=== PATIENT | female | born 1990 | race Asian ===

== ENCOUNTER 2018-08-29 00:35 | Inpatient (IN) | payer SELFPAY ==
[~2018-08-29] VITALS: Ht 162.6 cm; Wt 61.2 kg
[2018-08-29] MEDS ORDERED: OXYTOCIN/0.9 % SODIUM CHLORIDE 1,000 ML IV SCH (01:10)
[2018-08-29] MEDS ORDERED: LR 1,000 ML IV SCH (01:10)
[2018-08-29] MEDS ORDERED: NALBUPHINE HCL 10 MG/ML AMP IM PRN (01:15)
[2018-08-29 02:17] LABS: HEMATOCRIT 34.8 % (36-48); HEMOGLOBIN 11.7 g/dL (12.0-16.0); MEAN CORPUSCULAR HEMOGLOBIN 33 pg (27-31); MEAN CORPUSCULAR HGB CONC 34 % (32-36); MEAN CORPUSCULAR VOLUME 98 fL (79.0-98.0); PLATELET COUNT (AUTO) 216 K/uL (130-430); RED BLOOD CELL COUNT(AUTO) 3.55 MIL/uL (4.2-6.2); RED CELL DISTRIBUTION WIDTH 11.9 % (9.0-15.0); WHITE BLOOD COUNT (AUTO) 9.3 K/uL (4.8-10.8)
[2018-08-29 04:38] LABS: BAND % (MANUAL) 2 % (0-6)
[2018-08-29 04:39] LABS: BASOPHILS % (MANUAL) 0 % (0-2); EOSINOPHILS % (MANUAL) 0 % (0-7); LYMPHOCYTES % (MANUAL) 15 % (20-46); MONOCYTES % (MANUAL) 1 % (0-11)
[2018-08-29] MEDS ORDERED: OXYTOCIN/0.9 % SODIUM CHLORIDE 1,000 ML IV ONE (04:54)
[2018-08-29] MEDS ORDERED: DERMOPLAST SPRAY TP PRN (05:00)
[2018-08-29] MEDS ORDERED: RHO(D) IMMUNE GLOBULIN/MALTOSE 1500 UNITS/1.3 ML (WINHRO) IM PRN (05:00)
[2018-08-29] MEDS ORDERED: LANOLIN 7 GM OINT. TP PRN (05:00)
[2018-08-29] MEDS ORDERED: METHYLERGONOVINE MALEATE 0.2 MG TABLET PO PRN (05:00)
[2018-08-29] MEDS ORDERED: WITCH HAZEL LEAF 1 MED.PAD MED.PAD TP PRN (05:00)
[2018-08-29] MEDS ORDERED: MEASLES,MUMPS&RUBELLA VACC/PF 12500 UNIT/0.5 ML VIAL SUBQ PRN (05:00)
[2018-08-29] MEDS ORDERED: DIPH-TET-PERTUS Vaccine 0.5 ML VIAL (ADACEL) I.M. PRN (05:00)
[2018-08-29] MEDS: IBUPROFEN 600 MG TABLET PO SCH ×4 (06:00→23:08)
[2018-08-29 11:20] VITALS: BP_SYST 116
[2018-08-29] MEDS ORDERED: TEMAZEPAM 15 MG CAPSULE PO PRN (21:00)
[2018-08-29] MEDS: DOCUSATE SODIUM 100 MG CAPSULE PO PRN (21:17)
[2018-08-30 06:17] LABS: HEMOGLOBIN 11.1 g/dL (12.0-16.0)
[2018-08-30] MEDS: IBUPROFEN 600 MG TABLET PO SCH ×2 (11:50→16:22)
[2018-08-31] MEDS: IBUPROFEN 600 MG TABLET PO SCH (05:37)
[2018-08-31] MEDS: DOCUSATE SODIUM 100 MG CAPSULE PO PRN (09:14)
== END 2018-08-31 13:20 | disposition home or self-care (01) | DRG 807 ==
LOC: SPU 00:35
PROVIDERS: ADMIT Obstetrics & Gynecology; ATTEND Obstetrics & Gynecology
PROC: 10E0XZZ Delivery of Products of Conception, External Approach (ICD-10-PCS; principal; 2018-08-29)
PROC: 0KQM0ZZ Repair Perineum Muscle, Open Approach (ICD-10-PCS; 2018-08-29)
DX: O70.1 Second degree perineal laceration during delivery (principal); Z37.0 Single live birth; Z3A.40 40 weeks gestation of pregnancy
CPT/HCPCS: 36415; 85007; 85018-TC; 85027; 86592; 86886; 86900; 86901; 87536; J2590